=== PATIENT | female | born 1985 | race Caucasian/White ===

== ENCOUNTER 2017-10-13 13:33 | Emergency (ER) | payer OTHER ==
[~2017-10-13] VITALS: Ht 162.6 cm; Wt 60.0 kg
[~2017-10-13 13:33] MED LIST: ALPR-411 PO; CHOL1000 PO; ETAN25IN4 INJ; FLV1 PO; METH1INJ89 IM; NAPR-1169 PO; OXYM1TAB42 PO; PARO1TAB29 PO
[2017-10-13 13:36] VITALS: TEMP 36.5; Ht 162.6 cm; Wt 60.0 kg
--- NOTE | 2017-10-13 14:24 | EMERGENCY ROOM VISIT NOTE ---
History Report prepared by Jayla: Hailey Barba Under the Supervision of: Dr. Ottoniel Bailon M.D. First contact with patient: 14:00 Chief Complaint: MENTAL HEALTH EVALUATION Stated Complaint: VOICES,DELUSIONAL,ANXIETY History of Present Illness The patient is a 31 year old white female with a past medical history of depression and rheumatoid arthritis who presents to the ED for a mental health evaluation. She states that she is extremely agitated and she has been hearing voices for the past week. They are asking her "interrogating questions." She denies the voices telling her to harm herself or others. Pt denies SI. The patient reports, "I deeply deeply wish that I could hurt my neighbor." She has heard voices in the past. Anxiety typically triggers the voices. The patient was brought to the ED today by her mother. She is currently willing to stay in the hospital voluntarily at this time. She states, "I need some help." She takes Thorazine but states that it isn't helping. She is out of her lithium and other psychiatric medications. She admits to drug and alcohol use. She last used alcohol yesterday and she last used meth about 1 week ago.She has tried to kill herself in the past. She reports that 6 months ago she tried to OD on Tylenol. Source of History: patient Onset: BODY MAN Position: head (mental health) Timing: worsening Modifying Factors (Worsening): other (anxiety) Note: Pt denies SI. Review of Systems See HPI for pertinent positives and negatives. A total of ten systems were reviewed and were otherwise negative. Past Medical & Surgical Medical Problems: (1) Depression (2) Opioid dependence (3) Rheumatoid arthritis Family History No pertinent history stated. Social History Smoking Status: Current Every Day Smoker Alcohol Use: occasionally Drug Use: other Marital Status: single Occupation Status: unemployed Current/Historical Medications Scheduled Chlorpromazine Hcl (Thorazine), 50 MG PO TID [place] Carbonate ([place] Carbonate), 300 MG PO TID Olanzapine (Zyprexa), 10 MG PO BID Allergies Coded Allergies: Clavulanic Acid (Unverified Allergy, Unknown, Skin rash and hives., ) Levofloxacin (Verified Allergy, Unknown, CONFUSION, 10/13/17) Penicillins (Unverified Allergy, Unknown, Skin rash and hives., 10/13/17) Uncoded Allergies: BETALACTAMASEIN (Allergy, Unknown, Skin rash and hives., 10/26/09) Physical Exam Vital Signs Date Time Temp Pulse Resp B/P (MAP) Pulse Ox O2 Delivery O2 Flow Rate FiO2 10/13/17 16:04 104 20 134/75 95 Room Air 10/13/17 13:48 118/93 10/13/17 13:36 36.5 119 20 100 Physical Exam GENERAL: Rocking back and forth, flight of ideas, difficulty with focus, agitated HENT: Normocephalic, atraumatic. EYES: Normal conjunctiva. Sclera non-icteric. NECK: Supple. No nuchal rigidity. FROM. RESPIRATORY: CTAB, no rhonchi, wheezing, crackles CARDIAC: RRR, no MRG ABDOMEN: Soft, NTND, BS+ MSK: No chest wall TTP, no LE edema NEURO: GCS 15, CN 2-12 intact, moves all 4s on command SKIN: No rash or jaundice noted. Medical Decision & Procedures Laboratory Results 10/13/17 14:29 Red Blood Count 4.45, Mean Corpuscular Volume 82.9, Mean Corpuscular Hemoglobin 26.7, Mean Corpuscular Hemoglobin Concent 32.2, Mean Platelet Volume 8.5, Neutrophils (%) (Auto) 67.5, Lymphocytes (%) (Auto) 23.1, Monocytes (%) (Auto) 7.6, Eosinophils (%) (Auto) 1.4, Basophils (%) (Auto) 0.2, Neutrophils # (Auto) 4.46, Lymphocytes # (Auto) 1.52, Monocytes # (Auto) 0.50, Eosinophils # (Auto) 0.09, Basophils # (Auto) 0.01 10/13/17 14:29 Test 10/13/17 13:40 10/13/17 14:29 Urine Color YELLOW Urine Appearance CLEAR (CLEAR) Urine pH 7.5 (4.5-7.5) Urine Specific [place] 1.021 (1.000-1.030) Urine Protein NEG (NEG) Urine Glucose (UA) NEG (NEG) Urine Ketones NEG (NEG) Urine Occult Blood NEG (NEG) Urine Nitrite NEG (NEG) Urine Bilirubin NEG (NEG) Urine Urobilinogen NEG (NEG) Urine Leukocyte Esterase NEG (NEG) Urine Test NEG (NEG) Urine Opiates Screen NEG (NEG) Urine Methadone, Qualitative NEG (NEG) Urine Barbiturates NEG (NEG) Urine Phencyclidine (PCP) Level NEG (NEG) Ur Amphetamine/Methamphetamine NEG (NEG) MDMA (Ecstasy) Screen NEG (NEG) Urine Benzodiazepines Screen NEG (NEG) Urine Cocaine Metabolite NEG (NEG) Urine Marijuana (THC) NEG (NEG) White Blood Count 6.59 K/uL (4.8-10.8) Red Blood Count 4.45 M/uL (4.2-5.4) Hemoglobin 11.9 g/dL (12.0-16.0) Hematocrit 36.9 % (37-47) Mean Corpuscular Volume 82.9 fL (80-100) Mean Corpuscular Hemoglobin 26.7 pg (25-34) Mean Corpuscular Hemoglobin Concent 32.2 g/dl (32-36) Platelet Count 227 K/uL (130-400) Mean Platelet Volume 8.5 fL (7.4-10.4) Neutrophils (%) (Auto) 67.5 % Lymphocytes (%) (Auto) 23.1 % Monocytes (%) (Auto) 7.6 % Eosinophils (%) (Auto) 1.4 % Basophils (%) (Auto) 0.2 % Neutrophils # (Auto) 4.46 K/uL (1.4-6.5) Lymphocytes # (Auto) 1.52 K/uL (1.2-3.4) Monocytes # (Auto) 0.50 K/uL (0.11-0.59) Eosinophils # (Auto) 0.09 K/uL (0-0.5) Basophils # (Auto) 0.01 K/uL (0-0.2) RDW Standard Deviation 48.5 fL (36.4-46.3) RDW Coefficient of Variation 15.9 % (11.5-14.5) Immature Granulocyte % (Auto) 0.2 % Immature Granulocyte # (Auto) 0.01 K/uL (0.00-0.02) Anion Gap 8.0 mmol/L (3-11) Est Creatinine Clear Calc Drug Dose 96.9 ml/min Estimated GFR () 126.9 Estimated GFR (Non- 109.5 BUN/Creatinine Ratio 9.9 (10-20) Calcium Level 8.8 mg/dl (8.5-10.1) Total Bilirubin 0.2 mg/dl (0.2-1) Aspartate Amino Transf (AST/SGOT) 13 U/L (15-37) Alanine Aminotransferase (ALT/SGPT) 26 U/L (12-78) Alkaline Phosphatase 52 U/L (45-117) Total Protein 7.0 gm/dl (6.4-8.2) Albumin 3.7 gm/dl (3.4-5.0) Globulin 3.3 gm/dl (2.5-4.0) Albumin/Globulin Ratio 1.1 (0.9-2) Thyroid Stimulating Hormone (TSH) 0.578 uIu/ml (0.300-4.500) Salicylates Level 2.8 mg/dl (2.8-20) Acetaminophen Level < 2 ug/ml (10-30) [place] Level < 0.2 mMOL/L (0.6-1.2) Ethyl Alcohol mg/dL < 3.0 mg/dl (0-3) Laboratory results reviewed by me. Medications Administered Medications (Trade) Dose Ordered Sig/Vickie Route Start Time Stop Time Status Last Admin Dose Admin Lorazepam (Ativan Tab) 1 mg NOW ONCE PO 10/13/17 15:15 10/13/17 15:16 DC 10/13/17 14:56 1 MG Diphenhydramine HCl (Benadryl Cap) 50 mg NOW ONCE PO 10/13/17 15:15 10/13/17 15:16 DC 10/13/17 14:58 50 MG Nicotine (Nicoderm Cq 14MG Patch) 1 patch ONE STAT TD 10/13/17 14:57 10/13/17 14:58 DC 10/13/17 15:02 1 PATCH Lorazepam (Ativan Tab) 1 mg NOW STAT PO 10/13/17 16:09 10/13/17 16:10 DC 10/13/17 16:40 1 MG Olanzapine (Zyprexa Tab) 10 mg ONE STAT PO 10/13/17 17:32 10/13/17 17:33 DC 10/13/17 17:47 10 MG ECG Indication: toxicologic Rate (beats per minute): 96 Rhythm: normal sinus Findings: no ectopy, other (normal axis; no STS or TWI) Comparison ECG Date: no prior available Change: ECG as interpreted by myself. ED Course 1403: The patient was evaluated in room A7. A complete history and physical exam was performed. Medical Decision The patient is a 31 year old white female with a past medical history of depression and rheumatoid arthritis who presents to the ED for a mental health evaluation. Differential diagnosis: Etiologies such as mood disorder, infection, hypoglycemia, electrolyte abnormalities, cardiac sources, intracerebral event, toxicologic, neurologic, as well as others were entertained. Patient was seen and evaluated the bedside. Patient is a 31-year-old with a prior history of alcohol and drug abuse. Patient has a prior history of mood disorder. Patient does take with him. Patient does complain of wanting to hurt her neighbor. She states that she is hearing voices. She states that there is interrogated questions and usually echoing whatever most recent voice she just heard. Patient denies any suicidal ideation or plan. Patient states that she did try to overdose on a bottle of Tylenol 6 months prior. Patient doesn't have any other symptom medical complaints at this time. She did have blood work completed along with a urine drug screen and tox screen. Patient's urine drug screen and tox screen are negative. Other blood work is fairly unremarkable. Urine test negative. Patient was given some antianxiety medications. Patient was also given her home meds. Patient was pending voluntary 201 admission. Patient was cleared from medical standpoint. Patient was admitted to 3 S. Medication Reconcilliation Current Medication List: was personally reviewed by me Blood Pressure Screening Patient's blood pressure: Normal blood pressure Impression Primary Impression: Suicidal ideation Additional Impression: Auditory hallucination Scribe Attestation The scribe's documentation has been prepared under my direction and personally reviewed by me in its entirety. I confirm that the note above accurately reflects all work, treatment, procedures, and medical decision making performed by me. Departure Information Dispostion Mental Health Acute Care Referrals No Doctor, Assigned (PCP) Patient Instructions My [facility] Problem Qualifiers
[2017-10-13] MEDS ORDERED: LITHIUM PO (14:43)
[2017-10-13] MEDS ORDERED: ZYPREXA PO (14:43)
[2017-10-13 14:48] LABS: BASO % 0.2 %; BASO ABS # 0.01 K/uL (0-0.2); EOS % 1.4 %; EOS ABS # 0.09 K/uL (0-0.5); HEMATOCRIT 36.9 % (37-47); HEMOGLOBIN 11.9 g/dL (12.0-16.0); IG# 0.01 K/uL (0.00-0.02); LYMPH % 23.1 %; LYMPH ABS # 1.52 K/uL (1.2-3.4); MEAN CELL VOLUME 82.9 fL (80-100); MEAN CORPUSCULAR HEMOGLOBIN 26.7 pg (25-34); MEAN CORPUSCULAR HGB CONC 32.2 g/dl (32-36); MEAN PLATELET VOLUME 8.5 fL (7.4-10.4); MONO % 7.6 %; NEUT % 67.5 %; NEUT ABS # 4.46 K/uL (1.4-6.5); PLATELET COUNT 227 K/uL (130-400); RED CELL DISTRIBUTION WIDTH CV 15.9 % (11.5-14.5); RED CELL DISTRIBUTION WIDTH SD 48.5 fL (36.4-46.3); WHITE BLOOD COUNT 6.59 K/uL (4.8-10.8)
[2017-10-13] MEDS ORDERED: NICOTINE 14 MG/24 HR TDSY TD STA (14:57)
[2017-10-13] MEDS ORDERED: OLAN10TA11 PO (15:06)
[2017-10-13] MEDS ORDERED: CHLO1TAB15 PO (15:06)
[2017-10-13] MEDS ORDERED: LTHSR/300 PO (15:06)
[2017-10-13 15:10] LABS: ALBUMIN 3.7 gm/dl (3.4-5.0); CALCIUM 8.8 mg/dl (8.5-10.1); CREATININE 0.74 mg/dl (0.60-1.20); POTASSIUM 3.6 mmol/L (3.5-5.1)
[2017-10-13] MEDS ORDERED: LORAZEPAM 1 MG TAB PO ONE (15:15)
[2017-10-13] MEDS ORDERED: LORAZEPAM 1 MG TAB PO STA (16:09)
[2017-10-13] MEDS ORDERED: OLANZAPINE 10 MG TAB PO STA (17:32)
[2017-10-13 22:48] VITALS: BP 119/86; PULSE 107; O2SAT 99
== END 2017-10-13 22:57 ==
LOC: C.EDB 13:35 → C.EDA 22:57
DX: R45.851 Suicidal ideations (principal); R44.0 Auditory hallucinations; F17.200 Nicotine dependence, unspecified, uncomplicated; F11.10 Opioid abuse, uncomplicated

== ENCOUNTER 2018-01-21 10:53 | Emergency (ER) | payer OTHER ==
[~2018-01-21] VITALS: Ht 162.6 cm; Wt 57.2 kg
[~2018-01-21 10:53] MED LIST changes: -ALPR-411 PO; +CHLO1TAB15 PO; -CHOL1000 PO; -ETAN25IN4 INJ; -FLV1 PO; +LTHSR/300 PO; -METH1INJ89 IM; -NAPR-1169 PO; +OLAN10TA11 PO; -OXYM1TAB42 PO; -PARO1TAB29 PO
[2018-01-21 11:03] VITALS: Ht 162.6 cm; Wt 57.2 kg
[2018-01-21] MEDS ORDERED: NICOTINE 14 MG/24 HR TDSY TD STA (11:35)
[2018-01-21] MEDS ORDERED: NICOTINE POLACRILEX 2 MG GUM MT STA (11:35)
[2018-01-21] MEDS ORDERED: LORAZEPAM 1 MG TAB SL STA (11:37)
[2018-01-21 11:59] LABS: BASO % 0.3 %; BASO ABS # 0.01 K/uL (0-0.2); EOS ABS # 0.08 K/uL (0-0.5); HEMATOCRIT 29.7 % (37-47); IG# 0.01 K/uL (0.00-0.02); LYMPH % 29.1 %; LYMPH ABS # 1.16 K/uL (1.2-3.4); MEAN CORPUSCULAR HEMOGLOBIN 27.6 pg (25-34); MEAN CORPUSCULAR HGB CONC 33.7 g/dl (32-36); MEAN PLATELET VOLUME 7.8 fL (7.4-10.4); MONO % 14.8 %; MONO ABS # 0.59 K/uL (0.11-0.59); NEUT % 53.5 %; NEUT ABS # 2.13 K/uL (1.4-6.5); PLATELET COUNT 267 K/uL (130-400); RED CELL DISTRIBUTION WIDTH CV 14.7 % (11.5-14.5); RED CELL DISTRIBUTION WIDTH SD 43.9 fL (36.4-46.3); WHITE BLOOD COUNT 3.98 K/uL (4.8-10.8)
[2018-01-21] MEDS ORDERED: OLAN-111 PO (12:07)
[2018-01-21] MEDS ORDERED: LITH600C PO (12:07)
[2018-01-21] MEDS ORDERED: CHLO100T8 PO (12:07)
[2018-01-21 12:17] LABS: ALBUMIN 3.8 gm/dl (3.4-5.0); CALCIUM 8.8 mg/dl (8.5-10.1); CREATININE 0.92 mg/dl (0.60-1.20); POTASSIUM 3.9 mmol/L (3.5-5.1)
[2018-01-21 12:28] LABS: TOTAL PROTEIN 7.2 gm/dl (6.4-8.2)
--- NOTE | 2018-01-21 14:04 | Pharmacy Progress Note ---
ED Pharmacist Progress Note Date of Service: January 21, 2018. Called [facility] to obtain an updated medication list. Patient's mother stated she believes the patient's medications were last prescribed by this facility. I did leave a message requesting they fax over the medication list they have for her. Patient was only incarcerated in [facility] for 2 days per mother's report and no medications were changed while there to her knowledge. The mother believes the only pharmacy that her daughter uses is [facility] in [place]. [employer] Rec nanoscience technician states the patient had new Rx's called there in November however the patient did not pick them up per conversation with pharmacist there. Perhaps the patient was using medications that she still had a supply of , thus did not pick them up. Patient was sleeping after Ativan administration when I spoke w/ mother.
--- NOTE | 2018-01-21 17:53 | EMERGENCY ROOM VISIT NOTE ---
History Report prepared by Jayla: Rowdy Brown Under the Supervision of: Dr. Jonatan Orozco M.D. First contact with patient: 11:14 Chief Complaint: MENTAL HEALTH EVALUATION Stated Complaint: DELUSIONS, MENTAL HEALTH History of Present Illness The patient is a 32 year old female who presents to the Emergency Room with complaints of intermittent delusions beginning yesterday. She also complains of auditory hallucinations and problems with anger. The patient has a history of schizophrenia (on Zyprexa, Villar[place] and Thorazine). She notes that she has missed a few doses of psychiatric medications recently, but has been taking it most of the time (took one 30 mg tablet of Zyprexa today). She has been admitted as an inpatient psychiatric facility before in the past. Per mother, the patient has been having delusions over the past month (since being discharged from [facility]). She notes that the patient was supposed to go to rehab for heroin abuse after discharge from [facility], but did not go. The patient denies suicidal or homicidal ideation. She feels that she likely needs inpatient care. Pt denies LOC, headache, fevers, chills, diaphoresis, visual changes, neck pain, chest pain, breathing difficulties, nausea, vomiting, abdominal pain, back pain, melena, hematochezia, urinary symptoms, numbness, weakness, lymphadenopathy, rash, or other complaints. She had an elected three weeks ago. She denies recent alcohol or drug use. The patient most recently used methamphetamine two days ago. She notes that she has not been eating or drinking very regularly recently. Source of History: patient Onset: Yesterday Quality: other (delusions) Timing: intermittent Note: The patient also complains of auditory hallucinations and problems with anger. Review of Systems See HPI for pertinent positives and negatives. A total of ten systems were reviewed and were otherwise negative. Past Medical & Surgical Medical Problems: (1) Depression (2) Opioid dependence (3) Rheumatoid arthritis Family History No pertinent family history stated. Social History Smoking Status: Current Every Day Smoker Alcohol Use: occasionally Drug Use: heroin, other Marital Status: single Occupation Status: unemployed Current/Historical Medications Scheduled Chlorpromazine Hcl (Thorazine), 100 MG PO BID [place] Carbonate ([place] Carbonate), 600 MG PO TID Olanzapine (Zyprexa), 10 MG PO DAILY Olanzapine (Zyprexa), 5 MG PO DAILY Allergies Coded Allergies: Clavulanic Acid (Unverified Allergy, Unknown, Skin rash and hives., 01/21/18 ) Levofloxacin (Verified Allergy, Unknown, CONFUSION, 01/21/18) Penicillins (Unverified Allergy, Unknown, Skin rash and hives., 01/21/18) Uncoded Allergies: BETALACTAMASEIN (Allergy, Unknown, Skin rash and hives., 10/26/09) Physical Exam Vital Signs Date Time Temp Pulse Resp B/P (MAP) Pulse Ox O2 Delivery O2 Flow Rate FiO2 01/21/18 14:22 81 100/58 99 Room Air 01/21/18 12:19 93 18 116/75 100 Room Air 01/21/18 11:03 36.8 115 16 110/71 98 Physical Exam GENERAL: Awake, alert, very anxious appearing, no distress. Speech is pressured. HENT: Normocephalic, atraumatic. TM's normal. Oropharynx unremarkable. EYES: PERRL. EOMI. Normal conjunctiva. Sclera non-icteric. NECK: Supple. No nuchal rigidity. FROM. No JVD or bruit. RESPIRATORY: Clear. Breath sounds equal. No wheezes. No rhonchi. Normal respiratory effort. CARDIAC: Normal rate. Regular rhythm. No murmurs. No rubs. No JVD. ABDOMEN: Soft, non distended. No tenderness to palpation. No rebound or guarding. No masses. MUSCULOSKELETAL: Unremarkable. No edema. No discoloration. Gross motor strength symmetric. NEURO: Cranial nerves 2-12 grossly intact. Normal sensorium. No sensory or motor deficits noted. Speech normal. No pronator drift. SKIN: No rash or jaundice noted. LYMPH: No adenopathy. PSYCH: Irritable mood. Labile affect. No suicidal ideation. No homicidal ideation. Medical Decision & Procedures Laboratory Results 01/21/18 11:46 Red Blood Count 3.62, Mean Corpuscular Volume 82.0, Mean Corpuscular Hemoglobin 27.6, Mean Corpuscular Hemoglobin Concent 33.7, Mean Platelet Volume 7.8, Neutrophils (%) (Auto) 53.5, Lymphocytes (%) (Auto) 29.1, Monocytes (%) (Auto) 14.8, Eosinophils (%) (Auto) 2.0, Basophils (%) (Auto) 0.3, Neutrophils # (Auto ) 2.13, Lymphocytes # (Auto) 1.16, Monocytes # (Auto) 0.59, Eosinophils # (Auto ) 0.08, Basophils # (Auto) 0.01 01/21/18 11:46 Test 01/21/18 11:20 01/21/18 11:46 Urine Color DK YELLOW Urine Appearance TURBID (CLEAR) Urine pH 6.0 (4.5-7.5) Urine Specific [place] 1.031 (1.000-1.030) Urine Protein 1+ (NEG) Urine Glucose (UA) NEG (NEG) Urine Ketones 1+ (NEG) Urine Occult Blood 2+ (NEG) Urine Nitrite NEG (NEG) Urine Bilirubin NEG (NEG) Urine Urobilinogen NEG (NEG) Urine Leukocyte Esterase SMALL (NEG) Urine WBC (Auto) >30 /hpf (0-5) Urine RBC (Auto) 0-4 /hpf (0-4) Urine Hyaline Casts (Auto) 1-5 /lpf (0-5) Urine Epithelial Cells (Auto) >30 /lpf (0-5) Urine Bacteria (Auto) 4+ (NEG) Urine Crystals CALCIUM OXALATE (NONE Urine Pathogenic Casts /lpf (0) Urine Yeast (Auto) (NONE PRSENT) Urine Test NEG (NEG) Urine Opiates Screen NEG (NEG) Urine Methadone, Qualitative NEG (NEG) Urine Barbiturates NEG (NEG) Urine Phencyclidine (PCP) Level NEG (NEG) Ur Amphetamine/Methamphetamine POS (NEG) MDMA (Ecstasy) Screen NEG (NEG) Urine Benzodiazepines Screen NEG (NEG) Urine Cocaine Metabolite POS (NEG) Urine Marijuana (THC) NEG (NEG) White Blood Count 3.98 K/uL (4.8-10.8) Red Blood Count 3.62 M/uL (4.2-5.4) Hemoglobin 10.0 g/dL (12.0-16.0) Hematocrit 29.7 % (37-47) Mean Corpuscular Volume 82.0 fL (80-100) Mean Corpuscular Hemoglobin 27.6 pg (25-34) Mean Corpuscular Hemoglobin Concent 33.7 g/dl (32-36) Platelet Count 267 K/uL (130-400) Mean Platelet Volume 7.8 fL (7.4-10.4) Neutrophils (%) (Auto) 53.5 % Lymphocytes (%) (Auto) 29.1 % Monocytes (%) (Auto) 14.8 % Eosinophils (%) (Auto) 2.0 % Basophils (%) (Auto) 0.3 % Neutrophils # (Auto) 2.13 K/uL (1.4-6.5) Lymphocytes # (Auto) 1.16 K/uL (1.2-3.4) Monocytes # (Auto) 0.59 K/uL (0.11-0.59) Eosinophils # (Auto) 0.08 K/uL (0-0.5) Basophils # (Auto) 0.01 K/uL (0-0.2) RDW Standard Deviation 43.9 fL (36.4-46.3) RDW Coefficient of Variation 14.7 % (11.5-14.5) Immature Granulocyte % (Auto) 0.3 % Immature Granulocyte # (Auto) 0.01 K/uL (0.00-0.02) Anion Gap 5.0 mmol/L (3-11) Est Creatinine Clear Calc Drug Dose 77.3 ml/min Estimated GFR () 96.8 Estimated GFR (Non- 83.6 BUN/Creatinine Ratio 9.8 (10-20) Calcium Level 8.8 mg/dl (8.5-10.1) Total Bilirubin 0.4 mg/dl (0.2-1) Direct Bilirubin 0.1 mg/dl (0-0.2) Aspartate Amino Transf (AST/SGOT) 11 U/L (15-37) Alanine Aminotransferase (ALT/SGPT) 16 U/L (12-78) Alkaline Phosphatase 47 U/L (45-117) Total Protein 7.2 gm/dl (6.4-8.2) Albumin 3.8 gm/dl (3.4-5.0) Thyroid Stimulating Hormone (TSH) 0.465 uIu/ml (0.300-4.500) Salicylates Level 3.0 mg/dl (2.8-20) Acetaminophen Level < 2 ug/ml (10-30) Ethyl Alcohol mg/dL < 3.0 mg/dl (0-3) Laboratory results reviewed by me Medications Administered Medications (Trade) Dose Ordered Sig/Vickie Route Start Time Stop Time Status Last Admin Dose Admin Nicotine (Nicoderm Cq 14MG Patch) 1 patch NOW STAT TD 01/21/18 11:35 01/21/18 11:36 DC 01/21/18 12:11 1 PATCH Nicotine Polacrilex (Nicorette 2MG Gum) 1 piece NOW STAT MT 01/21/18 11:35 01/21/18 11:36 DC 01/21/18 12:11 1 PIECE Lorazepam (Ativan Tab) 1 mg NOW STAT SL 01/21/18 11:37 01/21/18 11:38 DC 01/21/18 12:11 1 MG ED Course 1128: The patient was evaluated in room A3. A complete history and physical exam was performed. 1135: Ordered Nicorette 2 mg gum 1 piece MT, Nicoderm Cq 14 mg Patch TD. 1137: Ordered Ativan Tab 1 mg SL. 1345: The patient is medically clear. She will be seen by the ED Psychiatric Poleyard Supervisor. 1622: I reassessed the patient. She has just woken up, and is speaking with the Psychiatric Poleyard Supervisor. She will be evaluated by [address] [place] [address]. 1800: The patient was signed out to Dr. Frances at the change of shift pending mental health evaluation. Medical Decision Prior records/ancillary studies reviewed. Triage Nursing notes reviewed and agree them. Additional history obtained from the family. The patient's history was concerning for possible psychiatric disturbance. Differential diagnosis: Etiologies such as thought disorder, mood disorder, infection, hypoglycemia, electrolyte abnormalities, cardiac sources, intracerebral event, toxicologic, neurologic, as well as others were entertained. Physical examination: The physical examination was performed as above and was completely benign. No emergent medical pathologies were noted. ER treatment provided: Nicotine patch Nicotine gum Ativan On reassessment the patient felt better. Diagnostic interpretation by me: The labs revealed an unremarkable CBC and chemistry panel. Tox screen revealed methamphetamine which the patient admits to. Urinalysis questionable. Urine culture pending Imaging studies: Deferred The patient is being evaluated by the mental health psychiatric caseworker as well as a consult for referral for psychiatric treatment. Her case was signed out to Dr. Frances at the change of shift. Medication Reconcilliation Current Medication List: was personally reviewed by me Blood Pressure Screening Patient's blood pressure: Normal blood pressure Blood pressure disposition: Did not require urgent referral Impression Primary Impression: Thought disorder Additional Impressions: Anxiety Auditory hallucinations Scribe Attestation The scribe's documentation has been prepared under my direction and personally reviewed by me in its entirety. I confirm that the note above accurately reflects all work, treatment, procedures, and medical decision making performed by me. Departure Information Dispostion Still a Patient (Signed out to Dr. Frances) Referrals No Doctor, Assigned (PCP) Patient Instructions My [facility] Problem Qualifiers
[2018-01-21 22:01] VITALS: BP 96/51; PULSE 98; TEMP 36.8; O2SAT 100
--- NOTE | 2018-01-21 22:50 | EMERGENCY ROOM VISIT NOTE ---
ED Visit Note Admitted to [facility] in [place].
== END 2018-01-21 22:01 ==
LOC: C.EDB 10:55 → C.EDA 22:01
DX: F41.9 Anxiety disorder, unspecified (principal); R44.0 Auditory hallucinations; F32.9 Major depressive disorder, single episode, unspecified; F17.200 Nicotine dependence, unspecified, uncomplicated; F11.20 Opioid dependence, uncomplicated; Z88.8 Allergy status to other drugs, medicaments and biological substances